=== PATIENT | male | born 1960 | race Caucasian/White ===

== ENCOUNTER → 2017-07-25 | Outpatient (REF) ==
[~2017-07-25] MED LIST: DIAZEPAM5 MG PO; DICLOFENAC NA25 MG PO; MOBIC15 MG PO; NEURONTIN400 MG/CAP PO; PERCOCET 325 MG1 TA2 PO; RAPAFLO8 MG PO; VALIUM 5MG T5 MG/TAB PO
[2017-07-25 18:51] LABS: THYROID STIMULATING HORMONE 1.83 uIU/mL (0.465-4.680)
[2017-07-25 19:25] LABS: PSA-TOTAL 0.82 ng/mL (0-4)
== END ==
LOC: ZLAB.WCH 17:54
PROVIDERS: Internal Medicine
DX: Z01.89 Encounter for other specified special examinations (principal)
CPT/HCPCS: G0103

== ENCOUNTER → 2017-08-07 | Outpatient (REF) | LOC: ZLAB.WCH 16:09 | DX: Z01.89 Encounter for other specified special examinations (principal) ==

== ENCOUNTER → 2017-08-11 | Outpatient (CLI) | payer MEDICARE | LOC: COL.RAD 07:30 | DX: K86.9 Disease of pancreas, unspecified (principal); K83.8 Other specified diseases of biliary tract; K76.9 Liver disease, unspecified; Z87.19 Personal history of other diseases of the digestive system; Z90.49 Acquired absence of other specified parts of digestive tract | CPT/HCPCS: A9585 ==

== ENCOUNTER → 2020-02-08 | Outpatient (CLI) | payer MEDICARE, BC | LOC: MHCPAIN 09:26 | DX: M47.817 Spondylosis without myelopathy or radiculopathy, lumbosacral region (principal); M96.1 Postlaminectomy syndrome, not elsewhere classified; M54.5 Low back pain; M53.3 Sacrococcygeal disorders, not elsewhere classified; M54.16 Radiculopathy, lumbar region | CPT/HCPCS: G0463 ==

== ENCOUNTER → 2020-02-17 | Outpatient (CLI) | payer MEDICARE, BC | LOC: MHCPAIN 11:07 | DX: M47.817 Spondylosis without myelopathy or radiculopathy, lumbosacral region (principal); M53.3 Sacrococcygeal disorders, not elsewhere classified | CPT/HCPCS: G0260; J1040; J1100; Q9967 ==

== ENCOUNTER → 2020-03-06 | Outpatient (CLI) | payer MEDICARE, BC | LOC: MHCPAIN 10:14 | DX: M47.817 Spondylosis without myelopathy or radiculopathy, lumbosacral region (principal); M54.16 Radiculopathy, lumbar region; M53.3 Sacrococcygeal disorders, not elsewhere classified; M96.1 Postlaminectomy syndrome, not elsewhere classified; G89.29 Other chronic pain | CPT/HCPCS: G0463 ==

== ENCOUNTER → 2020-03-09 | Outpatient (CLI) | payer MEDICARE, BC | LOC: MHCPAIN 09:59 | DX: M47.817 Spondylosis without myelopathy or radiculopathy, lumbosacral region (principal); M96.1 Postlaminectomy syndrome, not elsewhere classified; M54.16 Radiculopathy, lumbar region | CPT/HCPCS: J1100; Q9967 ==

== ENCOUNTER → 2020-04-10 | Outpatient (CLI) | payer MEDICARE, BC | LOC: MHCPAIN 10:39 | DX: M47.817 Spondylosis without myelopathy or radiculopathy, lumbosacral region (principal); M96.1 Postlaminectomy syndrome, not elsewhere classified; M54.5 Low back pain; F17.210 Nicotine dependence, cigarettes, uncomplicated | CPT/HCPCS: G0463 ==

== ENCOUNTER → 2020-04-13 | Outpatient (CLI) | payer MEDICARE, BC | LOC: MHCPAIN 11:14 | DX: M47.817 Spondylosis without myelopathy or radiculopathy, lumbosacral region (principal); M54.5 Low back pain ==

== ENCOUNTER → 2020-04-18 | Outpatient (CLI) | payer MEDICARE, BC | LOC: MHCPAIN 10:22 | DX: M47.816 Spondylosis without myelopathy or radiculopathy, lumbar region (principal); M96.1 Postlaminectomy syndrome, not elsewhere classified; M54.5 Low back pain; G89.29 Other chronic pain; F17.210 Nicotine dependence, cigarettes, uncomplicated | CPT/HCPCS: G0463 ==

== ENCOUNTER → 2020-04-20 | Outpatient (CLI) | payer MEDICARE, BC | LOC: MHCPAIN 10:11 | DX: M47.817 Spondylosis without myelopathy or radiculopathy, lumbosacral region (principal); M54.5 Low back pain ==

== ENCOUNTER → 2020-05-01 | Outpatient (CLI) | payer MEDICARE, BC | LOC: MHCPAIN 12:14 | DX: M47.816 Spondylosis without myelopathy or radiculopathy, lumbar region (principal); M54.5 Low back pain; M53.3 Sacrococcygeal disorders, not elsewhere classified; G89.29 Other chronic pain | CPT/HCPCS: G0463; J1100; J2250; J3010 ==

== ENCOUNTER → 2020-07-04 | Outpatient (CLI) | payer MEDICARE, BC | LOC: MHCPAIN 10:27 | DX: M47.818 Spondylosis without myelopathy or radiculopathy, sacral and sacrococcygeal region (principal); M53.3 Sacrococcygeal disorders, not elsewhere classified; G89.29 Other chronic pain | CPT/HCPCS: G0463 ==

== ENCOUNTER → 2020-08-03 | Outpatient (CLI) | payer MEDICARE, BC | LOC: MHCPAIN 09:46 | DX: M47.818 Spondylosis without myelopathy or radiculopathy, sacral and sacrococcygeal region (principal); M53.3 Sacrococcygeal disorders, not elsewhere classified | CPT/HCPCS: G0260; J1040; Q9967 ==

== ENCOUNTER → 2020-08-15 | Outpatient (CLI) | payer MEDICARE, BC | LOC: MHCPAIN 09:27 | DX: M47.817 Spondylosis without myelopathy or radiculopathy, lumbosacral region (principal); M96.1 Postlaminectomy syndrome, not elsewhere classified; M53.3 Sacrococcygeal disorders, not elsewhere classified; G89.29 Other chronic pain | CPT/HCPCS: G0463 ==

== ENCOUNTER → 2020-12-14 | Outpatient (REF) | LOC: COL.CARD 16:58 | DX: Z01.810 Encounter for preprocedural cardiovascular examination (principal) ==